=== PATIENT | female | born 1940 | race Caucasian/White ===

== ENCOUNTER 2016-10-24 08:46 | Day surgery (SDC) | payer OTHER ==
--- NOTE | ~2016-10-24 | EGD ---
EGD REPORT [facility] [address] [place] [address] NAME: DAVID DAHL : [birth year] STATUS : [place] [facility] [place] PAT#: [id number] AGE: 76 ADM/REG DATE : 10/24/16 MR#: [id number] REPORT SERV DATE: 10/24/16 DICTATED BY: ANGELINA PANCHAL DATE: 10/24/16 REPORT STATUS : Draft TRANSCRIBED BY: [facility] DATE: 10/24/16 Endoscopy Center Patient Name: David Dahl Date of : 1940 Attending MD: ANGELINA PANCHAL MD Procedure Date No Time: 10/24/2016 Procedure: Upper GI endoscopy Indications: Iron deficiency anemia secondary to chronic blood loss; Protonix 20mg daily. Patient Profile: Informed consent was obtained from the patient by me prior to the procedure. Risks, benefits, and alternatives were discussed including the risk of bleeding, perforation, infection, reaction to medicine, missed lesion, and cardiopulmonary complications. Referring MD: CALLUM CASTANEDA Medicines: Monitored Anesthesia Care Complications: No immediate complications. Procedure: Pre-Anesthesia Assessment: - ASA Grade Assessment: III - A patient with severe systemic disease. After obtaining informed consent, the endoscope was passed under direct vision. Throughout the procedure, the patient's blood pressure, pulse, and oxygen saturations were monitored continuously. The GIF [id number] was introduced through the mouth, and advanced to the second part of duodenum. The endoscope was withdrawn with careful examination all mucosal surfaces including retroflexion stomach. The upper GI endoscopy was accomplished without difficulty. The patient tolerated the procedure well. Findings: The examined duodenum was normal. Biopsies were taken with a cold forceps for histology from 2nd portion. Three small angioectasias with active bleeding were found in the cardia and at the incisura. Fulguration to stop the bleeding by argon plasma at 1 liter/minute and 20 constantino was successful. Patchy mildly erythematous mucosa was found in the gastric body and in the gastric antrum. Biopsies were taken with a cold forceps for histology. Suspect PHG. The cardia and gastric fundus (on retroflexion) were normal. The examined esophagus was normal. No varices. Impression: - Normal examined duodenum. - Three bleeding angioectasias in the stomach. Treated EGD REPORT [id number] [place]. [address] NAME: DAVID DAHL : [birth year] STATUS : REG [facility]#: [id number] AGE: 76 ADM/REG DATE : 10/24/16 MR#: [id number] REPORT SERV DATE: 10/24/16 DICTATED BY: ANGELINA PANCHAL DATE: 10/24/16 REPORT STATUS : Draft TRANSCRIBED BY: [facility] DATE: 10/24/16 by fulguration. - Erythematous mucosa in the gastric body and antrum. Biopsied. - Normal cardia and gastric fundus. - Normal esophagus. Recommendation: - Patient has a contact number available for emergencies. The signs and symptoms of potential delayed complications were discussed with the patient. Return to normal activities tomorrow. Written discharge instructions were provided to the patient. - Regular diet. - Await pathology results. - Continue present medications. - Restart ASA today and Plavix in 5 days. Procedure Code(s): --- Professional --- 61427, 59, Esophagogastroduodenoscopy, flexible, transoral; with control of bleeding, any method 62712, Esophagogastroduodenoscopy, flexible, transoral; with biopsy, single or multiple Diagnosis Code(s): --- Professional --- K31.811, Angiodysplasia of stomach and duodenum with bleeding K31.9, Disease of stomach and duodenum, unspecified D50.0, Iron deficiency anemia secondary to blood loss (chronic) CPT copyright 2013 [employer]. All rights reserved. The codes documented in this report are preliminary and upon real time trader review may be revised to meet current compliance requirements. ANGELINA PANCHAL MD 10/24/2016 11:38 AM This report has been signed electronically. Number of Addenda: 0 Note Initiated On: 10/24/2016 10:41 AM Scope Withdrawal Time 0 hours 0 minutes 0 seconds [address] [address]
[~2016-10-24 08:46] MED LIST: ALBUTEROL0.083 % INH; AMB10 PO; APRES25 PO; ASA5GR PO; ASAB PO; BENTYL10 PO; BIAXIN5 PO; BRILINTA90 MG PO; CIP5 PO; COREG6 PO; FERROUS SULF325 M1 PO; FL250 PO; FOLIC PO; HCTZ25B PO; HYDROCHLOROT25 MG PO; KLOR-CON M2020 MEQ PO; NORCO1 TA1 PO; NORV5 PO; P10 PO; PCET PO; PLAVIX PO; PRILO PO; PROTONIX PO; SEPTRA DS1 TAB PO; URSO250 PO; VASOTEC20 MG PO; VICODINTAB PO
== END 2016-10-24 23:59 | disposition home or self-care (01) ==
LOC: DMU 08:46
PROVIDERS: Internal Medicine Gastroenterology
PROC: 0W3P8ZZ Control Bleeding in Gastrointestinal Tract, Via Natural or Artificial Opening Endoscopic (ICD-10-PCS; 2016-10-24)
PROC: 0DB98ZX Excision of Duodenum, Via Natural or Artificial Opening Endoscopic, Diagnostic (ICD-10-PCS; principal; 2016-10-24 10:00)
PROC: 0DB68ZX Excision of Stomach, Via Natural or Artificial Opening Endoscopic, Diagnostic (ICD-10-PCS; 2016-10-24 10:00)
DX: K29.50 Unspecified chronic gastritis without bleeding (principal); D50.0 Iron deficiency anemia secondary to blood loss (chronic); K31.811 Angiodysplasia of stomach and duodenum with bleeding
CPT/HCPCS: 88305; 88342; A9270-GY